=== PATIENT | male | born 1965 | race Caucasian/White ===

== ENCOUNTER 2021-03-22 16:56 | Emergency (ER) | payer BC, OTHER ==
[~2021-03-22] VITALS: Ht 175.2 cm; Wt 83.9 kg
[2021-03-22] MEDS ORDERED: NS IV 1000 ML 1,000 ML IV SCH ×2 (17:15→17:45)
[2021-03-22] MEDS ORDERED: KETOROLAC 30 MG/ML VIAL IVP ONE (17:15)
[2021-03-22 17:16] LABS: BILIRUBIN,URINE NEGATIVE (NEGATIVE); CLARITY,URINE SL CLOUDY; GLUCOSE, URINE (UA) NEGATIVE (NEGATIVE); KETONES,URINE NEGATIVE (NEGATIVE); LEUKOCYTE ESTERASE ,URINE NEGATIVE (NEGATIVE); NITRITE,URINE NEGATIVE (NEGATIVE); PROTEIN,URINE NEGATIVE (NEGATIVE)
[2021-03-22] MEDS ORDERED: fentaNYL INJ 100 MCG/2 ML AMP ONE (17:17)
[2021-03-22 17:21] LABS: BACTERIA,URINE NEGATIVE /HPF; RBC,URINE >100 /HPF; SQUAMOUS EPITHELIAL CELL,UR RARE /HPF; WBC,URINE RARE /HPF
[2021-03-22 17:22] LABS: COLOR,URINE YELLOW
[2021-03-22] MEDS ORDERED: fentaNYL INJ 100 MCG/2 ML AMP IVP ONE ×3 (17:30→19:45)
[2021-03-22] MEDS ORDERED: ONDANSETRON 4 MG/2 ML (SDV) Z0FRAN IVP ONE (17:45)
--- NOTE | 2021-03-22 19:13 | Diagnostic Imaging Report ---
EXAMINATION: CT abdomen and pelvis without contrast. TECHNIQUE: Multiple contiguous axial images were obtained through the abdomen and pelvis without the use of intravenous contrast. All CT scans use one or more of the following dose optimizing techniques: Automated exposure control, MA and/or KvP adjustment based on patient size and exam type or iterative reconstruction. HISTORY: LLQ, left flank pain 2 days, Hx stones. COMPARISON: None available. FINDINGS: Lung bases: The lung bases are clear. Solid organs: The liver is normal. The gallbladder is normal. There is no biliary ductal dilation. Pancreas is normal. Spleen is normal. Adrenal glands are normal. The right kidney is unremarkable without visualized calculus or hydronephrosis. There is a 0.2 cm calculus within the distal left ureter near the ureterovesicular junction. This results in mild left hydronephrosis and hydroureter. Additional nonobstructing left renal calculi measuring up to 0.2 cm. Bowel: The stomach and small bowel are normal without obstruction. There is scattered colonic diverticulosis. Appendix is normal. Peritoneum: There is no intraperitoneal free fluid or free air. No suspicious lymphadenopathy. Vasculature: Normal without aneurysm. Musculoskeletal: Degenerative changes of the spine without suspicious osseous lesion or compression fracture. Pelvis: The prostate gland is normal. The urinary bladder is normal. IMPRESSION: 1. A 0.2 cm calculus within the distal left ureter at the ureterovesicular junction. This results in mild left hydronephrosis. 2. Additional nonobstructing 0.2 cm left renal calculus. Dictated by: Dictated on workstation # [id number]
[2021-03-22] MEDS ORDERED: IBUP-1780 PO (19:31)
[2021-03-22] MEDS ORDERED: ACHD5005 PO (19:31)
--- NOTE | 2021-03-22 19:32 | ED GU-Male ---
General Chief Complaint: Abdominal/GI Problems Stated Complaint: PELVIC/LOWER PAIN Nursing Triage Note: Patient presents to the ED with c/o left flank and left pelvic/groin pain. Patient reports pain began yesterday evening but became severe around 45 minutes prior to arrival. He does state he has a history of kidney stones. History of Present Illness Date Seen by Provider: Mar 22, 2021 Time Seen by Provider: 17:05 Initial Comments 55-year-old male presents with onset of left flank and side pain beginning last night. Was little bit better this morning and then worse tonight. Past medical history significant for kidney stones, he states he gets them about every 2 years and this feels just like his typical. Denies any preceding illness, fever chills, nausea vomiting. He does have some nausea without vomiting, no change in bowel pattern or habit. Allergies and Home Medications Allergies Coded Allergies: No Known Drug Allergies (Unverified , 03/22/21) Patient Home Medication List Home Medication List Reviewed: Yes Hydrocodone/Acetaminophen (Hydrocodone-Acetamin 5-325 mg) 1 Each Tablet, 1 EACH PO Q4H Prescribed by: PAUL ROY on 03/22/211931 Ibuprofen (Ibuprofen) 800 Mg Tablet, 800 MG PO Q8H PRN for PAIN Prescribed by: PAUL ROY on 03/22/211930 Review of Systems Review of Systems Constitutional: No chills, No fever, No malaise, No weakness Respiratory: No cough, No short of breath Cardiovascular: No chest pain, No palpitations Gastrointestinal: LLQ, see HPI, abdominal pain; No constipation, No diarrhea, No loss of appetite; nausea; No vomiting Genitourinary: see HPI; denies frequency; flank pain; denies hematuria; pain Musculoskeletal: back pain (left) Skin: No change in color, No rash Past Swwkeqa-Tlqyfp-Nnfkfy Hx Patient Social History Tobacco Use?: No Use of E-Cig and/or Vaping dev: No Substance use?: No Alcohol Use?: No Pt feels they are or have been: No Immunizations Up To Date First/Initial COVID19 Vaccinat: May 2020 Second COVID19 Vaccination Oneil: June 2020 COVID19 Vaccine Rib Chopper: [place] Past Medical History Surgery/Hospitalization HX: HX of kidney stones Physical Exam Vital Signs Vital Signs - First Documented 03/22/21 17:00 Temp 36.9 Pulse 77 Resp 16 B/P (MAP) 139/100 (113) Pulse Ox 98 O2 Delivery Room Air Capillary Refill : Less Than 3 Seconds Height, Weight, BMI Height: '" Weight: lbs. oz. kg; 27.00 BMI Method: General Appearance: WD/WN, mild distress (initially) Cardiovascular: regular rate, rhythm, no edema, no gallop Respiratory: chest non-tender, lungs clear, normal breath sounds Gastrointestinal: normal bowel sounds, soft, no organomegaly; No distended, No guarding, No rebound; tenderness (LLQ and L flank) Back: normal inspection, CVA tenderness (L) (mild) Progress/Results/Core Measures Suspected Sepsis SIRS Temperature: Pulse: 77 Respiratory Rate: 16 Blood Pressure 139 /100 Mean: 113 Results/Orders Lab Results Laboratory Tests Test 03/22/21 17:00 Range/Units Urine Color YELLOW Urine Clarity SL CLOUDY Urine pH 6.0 5-9 Urine Specific [place] 1.015 L 1.016-1.022 Urine Protein NEGATIVE NEGATIVE Urine Glucose (UA) NEGATIVE NEGATIVE Urine Ketones NEGATIVE NEGATIVE Urine Nitrite NEGATIVE NEGATIVE Urine Bilirubin NEGATIVE NEGATIVE Urine Urobilinogen 0.2 < = 1.0 MG/DL Urine Leukocyte Esterase NEGATIVE NEGATIVE Urine RBC (Auto) 3+ H NEGATIVE Urine RBC >100 H /HPF Urine WBC RARE /HPF Urine Squamous Epithelial Cells RARE /HPF Urine Crystals NONE /LPF Urine Bacteria NEGATIVE /HPF Urine Casts NONE /LPF Urine Mucus SMALL H /LPF Urine Culture Indicated NO My Orders Orders - PAUL ROY DO Urinalysis (03/22/21 17:02) Ns Iv 1000 Ml (Sodium Chloride 0.9%) (03/22/21 17:15) Ketorolac Injection (Toradol Injection) (03/22/21 17:15) Fentanyl Inj (Sublimaze Injection) (03/22/21 17:30) Fentanyl Inj (Sublimaze Injection) (03/22/21 17:17) Fentanyl Inj (Sublimaze Injection) (03/22/21 17:45) Ns Iv 1000 Ml (Sodium Chloride 0.9%) (03/22/21 17:45) Ondansetron Injection (Zofran Injectio (03/22/21 17:45) Ct Abdomen/Pelvis Wo (03/22/21 18:20) Fentanyl Inj (Sublimaze Injection) (03/22/21 19:45) Medications Given in ED Current Medications Medications Dose Ordered Sig/Jose Daniel Route Start Time Stop Time Status Last Admin Dose Admin Fentanyl Citrate 50 mcg ONCE ONCE IVP 03/22/21 17:30 03/22/21 17:31 DC 03/22/21 17:41 50 MCG Fentanyl Citrate 50 mcg ONCE ONCE IVP 03/22/21 17:45 03/22/21 17:46 DC 03/22/21 17:42 50 MCG Ketorolac Tromethamine 30 mg ONCE ONCE IVP 03/22/21 17:15 03/22/21 17:16 DC 03/22/21 17:14 30 MG Ondansetron HCl 4 mg ONCE ONCE IVP 03/22/21 17:45 03/22/21 17:46 DC 03/22/21 17:53 4 MG Vital Signs/I&O 03/22/21 17:00 Temp 36.9 Pulse 77 Resp 16 B/P (MAP) 139/100 (113) Pulse Ox 98 O2 Delivery Room Air Capillary Refill : Less Than 3 Seconds Blood Pressure Mean: 113 Progress Note : Progress Note significantly improved p meds. Urinating without difficulty, strained without stone. Pt understands course of Tx well and has a Urologist in that he is already in contact with for follow up Diagnostic Imaging Diagonstic Imaging: CT Comments IMPRESSION: 1. A 0.2 cm calculus within the distal left ureter at the ureterovesicular junction. This results in mild left hydronephrosis. 2. Additional nonobstructing 0.2 cm left renal calculus. Dictated by: Dictated on workstation # [id number] Dict: 03/22/211906 Trans: 03/22/211914 [id number] Interpreted by: VERO NICOLE DO Electronically signed by: VERO NICOLE DO 03/22/211914 Departure Impression Primary Impression: Ureterolithiasis Disposition: 01 HOME, SELF-CARE Condition: Improved Departure-Patient Inst. Decision time for Depature: 19:32 Referrals: ZOZY CLEARY MD (PCP/Family) Primary Care Physician Patient Instructions: How to Strain Your Urine, Kidney Stones in Adults Add. Discharge Instructions: Call your Urologist to schedule a follow up appointment if your pain is not relieved All discharge instructions reviewed with patient and/or family. Voiced understanding. Scripts Ibuprofen (Ibuprofen) 800 Mg Tablet 800 MG PO Q8H PRN for PAIN, #30 TAB 0 Refills Prov: PAUL ROY DO 03/22/21 Hydrocodone/Acetaminophen (Hydrocodone-Acetamin 5-325 mg) 1 Each Tablet 1 EACH PO Q4H for Abdominal Pain, #10 TAB Prov: PAUL ROY DO 03/22/21 PAUL ROY DO Mar 22, 2021 19:32
[2021-03-22 19:50] VITALS: BP 126/74
== END 2021-03-22 19:49 | disposition home or self-care (01) ==
LOC: ER FS 16:58
DX: N13.2 Hydronephrosis with renal and ureteral calculous obstruction (principal)
CPT/HCPCS: 74176; 81000